=== PATIENT | female | born 1955 | race Caucasian/White ===

== ENCOUNTER → 2016-07-29 08:00 | Outpatient (CLI) | payer MEDICARE, OTHER ==
[2010-11-25 08:12] VITALS: BMI 26.0
== END | disposition home or self-care (01) ==
LOC: D.NM 07-18 10:15
DX: M25.561 Pain in right knee (principal)

== ENCOUNTER → 2016-10-06 08:43 | Outpatient (CLI) | payer MEDICARE, OTHER ==
[2010-11-25 08:12] VITALS: BMI 26.0
== END | disposition home or self-care (01) ==
LOC: D.CT 09-30 09:00
DX: L04.0 Acute lymphadenitis of face, head and neck (principal)

== ENCOUNTER 2017-10-13 05:00 | Day surgery (SDC) | payer MEDICARE ==
[2017-10-12 11:23] LABS: HEMATOCRIT 42.5 % (36.0-48.0); HEMOGLOBIN 13.7 g/dL (12-16); MCH 31.2 pg (26.0-34.0); MCHC 32.2 g/dL (31.0-37.0); MCV 96.8 fL (80.0-100.0); MEAN PLATELET VOLUME 9.2 fL (7.4-10.4); RBC 4.39 10x6/uL (4.00-5.40); RDW 14.4 % (11.5-14.5); WBC 7.4 10x3/uL (4.8-10.8)
[~2017-10-13] VITALS: Ht 157.5 cm; Wt 61.7 kg
--- NOTE | ~2017-10-13 | OP ---
PATIENT NAME: MODESTA MULLINS MEDICAL RECORD: [id number] :53 LOCATION:[facility] ADMISSION DATE: SURGEON: ARIANE CEDEÑO MD DATE OF OPERATION: 10/13/2017 PREOPERATIVE DIAGNOSES: Lumbar spinal stenosis at L4-L5 with foraminal stenosis. POSTOPERATIVE DIAGNOSES: Lumbar spinal stenosis at L4-L5 with foraminal stenosis. PROCEDURES: Lumbar laminotomy, medial facetectomy and foraminotomy at L4-L5 on the right with METRx retractor with microscopic illumination. DESCRIPTION AND TECHNIQUE: After induction of general endotracheal anesthesia, the patient was rolled prone on chest and hip rolls. The lumbar spine was prepped and draped in usual sterile fashion. Fluoroscopic x-ray and spinal needle localized the L4-L5 interspace on the right side. After 1:100,000 epinephrine and 1% lidocaine, a stab incision was created with a #11 blade and series of dilators were used to advance a METRx retractor to the L4-L5 interspace on the right side. Level was confirmed with fluoroscopic x-ray. A microscope and Midas Emigdio drill were used to perform laminotomy, medial facetectomy and foraminotomy at L4-L5 on the right. Hypertrophied ligamentum flavum was removed with Cloward rongeurs. Following this, the L5 and L4 nerve roots were decompressed well. Meticulous hemostasis was maintained throughout the wound. The wound was irrigated with copious amounts of Ancef irrigant solution. The fascia was closed with 3-0 Vicryl suture, the subdermal layer was closed with 3-0 Vicryl suture. The skin was closed with mateus. A sterile dressing was applied to the wound. The patient was awakened in good condition, and taken to recovery. All counts were reported as correct. Estimated blood loss was minimal. TRANSINT:[id number] Voice Confirmation ID: [id number] DOCUMENT ID: [id number] ARIANE CEDEÑO MD at 1709 CC: [id number] DICTATION DATE: 11/02/17 1006 [employer]AVER WIRE LOOM: 11/02/17 1242 [facility] 10/13/17 [place] [id number]
[~2017-10-13 05:00] MED LIST: DEPAKOTE250 MG PO; KLONOPIN0.5 MG PO; PREVACID30 MG PO
[2017-10-13 05:55] VITALS: BP 136/59; Ht 157.5 cm; Wt 61.7 kg
== END 2017-10-13 11:00 | disposition home or self-care (01) ==
LOC: D.PAN 05:00 → D.OPS 07:30 → D.PAN 07:30 → D.OPS 08:30 → D.PAN 11:00
PROVIDERS: Anesthesiology
DX: M54.16 Radiculopathy, lumbar region (principal); M47.9 Spondylosis, unspecified

== ENCOUNTER → 2018-06-07 09:12 | Outpatient (CLI) | payer MEDICARE ==
[2017-10-13 05:55] VITALS: BMI 24.9
== END | disposition home or self-care (01) ==
LOC: D.RAD 06-02 09:00
PROVIDERS: ATTEND Surgery
DX: K59.04 Chronic idiopathic constipation (principal)

== ENCOUNTER 2018-06-11 09:00 | Outpatient (CLI) | payer MEDICARE ==
[2017-10-13 05:55] VITALS: BMI 24.9
== END 2018-06-11 10:00 | disposition home or self-care (01) ==
LOC: D.MAMMO 09:00
PROVIDERS: ATTEND Emergency Medicine
DX: Z12.31 Encounter for screening mammogram for malignant neoplasm of breast (principal)

== ENCOUNTER 2019-12-02 08:00 | Outpatient (CLI) | payer MEDICARE, BC ==
[2017-10-13 05:55] VITALS: BMI 24.9
== END 2019-12-02 12:46 | disposition home or self-care (01) ==
LOC: D.MAMMO 08:00
PROVIDERS: ATTEND Nurse Practitioner
DX: Z12.31 Encounter for screening mammogram for malignant neoplasm of breast (principal)